=== PATIENT | female | born 1980 | race Caucasian/White ===

== ENCOUNTER 2018-10-16 16:20 | Emergency (ER) | payer MEDICAID ==
[2018-10-16] MEDS: LIDOCAINE 1% (MDV) 20 ML INJ SC (17:12)
[2018-10-16] MEDS: OXYCODONE/ACETAMINOPHEN (5/325) TAB PO (17:54)
== END 2018-10-16 18:56 | disposition home or self-care (01) ==
LOC: FTE 18:56
DX: T16.2XXA Foreign body in left ear, initial encounter (principal); W49.04XA Ring or other jewelry causing external constriction, initial encounter; Y92.9 Unspecified place or not applicable
CPT/HCPCS: 69200; 99283-25